=== PATIENT | male | born 1955 | race Two or more races ===

== ENCOUNTER → 2024-11-19 | Outpatient (CLI) | payer MEDICARE, MEDICAID, SELFPAY ==
--- NOTE | 2024-11-19 09:00 | XR_ITS ---
Examination: Bone densitometry Date and time of exam:November 19, 2024 0949 hours INDICATIONS: 69-year-old male with diagnosis age related osteoporosis Technique: Lumbar spine and hip total bone mineralization values of an calculated. Peak reference and age match control results have been displayed. Findings: Lumbar spine total bone mineralization is1.571 gm/cm2. This is 4.4 standard deviations above peak reference. This is 5.3 standard deviations above age-matched controls. Hip total bone mineralization is 1.198 gm/cm2 This is 1.1 standard deviations above peak reference. This is 1.7 standard deviations above age-matched controls Impression: There is normal mineralization based on lumbar spine measurements. There is normal mineralization based on hip measurements
[2024-11-19 10:01] LABS: Collection Type, Urine Clean Catch
[2024-11-19 10:22] LABS: Basophils % (Auto) 1 % (0-2.5); Eosinophils # (Auto) 0.2 Thou/mm3 (0.0-0.5); Eosinophils % (Auto) 4 % (0-10); Hematocrit 45.4 % (41.0-53.0); Hemoglobin 15.5 g/dL (13.5-16.0); Immature Granulocytes % (Auto) 0 % (0-0); Immature Granulocytes Auto 0.01 Thou/mm3 (0.00-0.00); Lymphocytes # (Auto) 2.1 Thou/mm3 (1.0-4.8); Lymphocytes % (Auto) 37 % (10-50); Mean Corpuscular HGB Conc 34.1 g/dl (31.0-37.0); Mean Corpuscular Hemoglobin 32.9 pg (25.0-35.0); Mean Corpuscular Volume 96 fL (80-100); Monocytes # (Auto) 0.6 Thou/mm3 (0.0-0.8); Monocytes % (Auto) 11 % (0-12); Neutrophils # (Auto) 2.7 Thou/mm3 (1.8-7.7); Neutrophils % (Auto) 48 % (37-80); Nucleated Red Blood Cell % 0 /100 WBC (0); Platelet Count 216 Thou/mm3 (140-440); RDW Standard Deviation 46.4 fL (35.1-43.9); Red Blood Count 4.71 Miln/mm3 (4.50-5.90); White Blood Count 5.7 Thou/mm3 (3.8-10.6)
[2024-11-19 10:29] LABS: Bilirubin,Urine Negative (Negative); Blood,Urine 1+ (Negative); Clarity,Urine Clear (Clear/Hazy); Color,Urine Lt-Yellow (Lt Yel-Yel); Glucose, Urine 3+ (Negative); Ketones,Urine Negative (Negative); Leukocyte Esterase,Urine Negative (Negative); Nitrite,Urine Negative (Negative); PH,Urine 6.5 (5.0-7.0); Protein,Urine 3+ (Neg - Trace); RBC,Urine 6 /hpf (0-3); Specific Gravity,Urine 1.018 (1.001-1.035); Squamous Epithelial Cell,Urine < 1 /hpf (0-5); Urobilinogen,Urine Negative mg/dL (0.0-1.0); WBC,Urine 5 /hpf (0-5)
[2024-11-19 10:54] LABS: Alanine Aminotransferase 25 U/L (10-49); Albumin, Serum 4.2 gm/dL (3.4-4.8); Albumin/Globulin Ratio 1.5 (1.2-2.2); Alkaline Phosphatase 112 U/L (46-116); Anion Gap 9 (7-16); Aspartate Amino Transferase 26 U/L (0-34); BUN/Creatinine Ratio 15 Ratio (12-20); Bilirubin,Total 1.7 mg/dL (0.3-1.2); Blood Urea Nitrogen 12 mg/dL (9-23); Calcium 9.6 mg/dL (8.3-10.6); Calcium (Corrected) 9.6 mg/dL (8.5-10.1); Carbon Dioxide 30.4 mMol/L (20.0-31.0); Cardiac Risk Estimate 3.9 RATIO (4.0-6.7); Chloride 101 mMol/L (98-107); Cholesterol 149 mg/dL (132-200); Creatinine (Component) 0.8 mg/dL (0.6-1.3); Globulin 2.8 gm/dL (2.3-3.5); Glucose 116 mg/dL (74-106); HDL Cholesterol 38 mg/dL (40-60); LDL Cholesterol,Calculated 62 mg/dL (0-130); Osmolality,Calculated 280 (275-295); Potassium 3.9 mMol/L (3.4-5.1); Sodium 140 mMol/L (136-145); Thyroid Stimulating Hormone 1.37 uIU/mL (0.55-4.78); Triglycerides 247 mg/dL (30-150); Uric Acid 4.8 mg/dL (3.7-9.2); eGFR > 60 See Note
== END | disposition home or self-care (01) ==
LOC: CDIM 09:30
PROVIDERS: PCP Family Medicine; Referring Provider Family Medicine; Visit Provider Family Medicine
DX: M81.0 Age-related osteoporosis without current pathological fracture (principal); I10 Essential (primary) hypertension; E78.2 Mixed hyperlipidemia; E79.0 Hyperuricemia without signs of inflammatory arthritis and tophaceous disease
CPT/HCPCS: 36415; 77080; 80053; 80061; 81001; 84443; 84550; 85025

== ENCOUNTER 2024-12-01 17:30 | Emergency (ER) | payer MEDICAID, SELFPAY ==
[2024-12-01 17:30] VITALS: BMI 33.9
[2024-12-01 18:47] VITALS: BP 134/75; PULSE 68; RESP 20; TEMP 36.8; O2SAT 93
[2024-12-01 20:36] LABS: Strep A Rapid Negative (Negative)
--- NOTE | 2024-12-01 21:25 | PD.EDDENTL ---
ED Dental RME/HPI General Chief complaint: Dental/Oral/Throat Stated complaint: SORE THROAT/BROKE TOOTH X 1 DAY Time Seen by Provider: 12/01/24 18:23 Arrival date/time: 12/01/24 17:30 This is a case of 69-year-old male who came into the emergency room due to dental pain and sore throat and mouth pain history of present illness started 1 day prior to arrival in the emergency room when the patient was broken and started to have pain and swelling on the right lower dental patient also have a cold sore on the right side of the tongue and sore throat no drooling of saliva patient can speak speak full sentences no hoarseness of voice Limitations: no limitations Related Data Previous Rx's ?Medication ?Instructions ?Recorded ibuprofen 800 mg tablet 800 mg PO TID PRN pain #30 tabs 08/23/21 clindamycin HCl 300 mg capsule 300 mg PO Q8H 10 days #30 caps 12/01/24 (Cleocin HCl) lidocaine HCl 2 % mucosal solution 10 ml PO Q4HR PRN mouth pain #100 12/01/24 (Lidocaine Viscous) mL Allergies Allergy/AdvReac Type Severity Reaction Status Date / Time No Known Allergies Allergy Verified 12/01/24 17:32 Review of Systems Review of Systems Systems Reviewed: All systems reviewed, normal except as documented Constitutional Constitutional: Reports system reviewed and no additional complaints, except as documented, Reports as per HPI and Denies headache(s) ENT Ears, Nose, Mouth, and Throat: Reports system reviewed and no additional complaints, except as documented, Reports as per HPI, Denies abnormal hearing, Denies bleeding gums, Denies change in voice, Reports dental pain, Denies disequilibrium, Denies dizziness, Denies dry mouth, Denies dysphagia, Denies ear discharge, Denies otalgia, Denies epistaxis, Denies facial pain, Denies halitosis, Denies headache(s), Denies hearing loss, Denies hoarseness, Denies lip swelling, Reports mouth lesions, Reports mouth pain, Denies nasal congestion, Denies nasal discharge, Denies nasal obstruction, Denies nasal trauma, Denies neck mass, Denies neck pain, Denies nose pain, Denies odynophagia, Denies post nasal drip, Denies sinus pain, Denies sinus pressure, Denies sore throat, Denies throat swelling, Denies tinnitus, Denies tongue swelling and Denies vertigo Cardiovascular Cardiovascular: Reports system reviewed and no additional complaints, except as documented Respiratory Respiratory: Reports system reviewed and no additional complaints, except as documented and Reports as per HPI Gastrointestinal Gastrointestinal: Reports system reviewed and no additional complaints, except as documented, Reports as per HPI, Denies dysphagia and Denies odynophagia Musculoskeletal Musculoskeletal: Reports system reviewed and no additional complaints, except as documented, Reports as per HPI and Denies neck pain Integumentary/Breasts Skin/Breast: Reports system reviewed and no additional complaints, except as documented and Reports as per HPI Neurologic Neurologic: Reports system reviewed and no additional complaints, except as documented, Reports as per HPI, Denies abnormal hearing, Denies disequilibrium, Denies dizziness, Denies headache(s) and Denies vertigo Allergic/Immunologic Allergic/Immunologic: Denies lip swelling, Denies throat swelling and Denies tongue swelling Past Medical History Social History SMOKING STATUS: Never smoker ED Exam General Limitations: Present no limitations General appearance: Present alert and in no apparent distress Head Head exam: Present atraumatic and normocephalic Eye Eye exam: Present normal appearance, PERRL and EOMI ENT ENT exam: Present normal exam, normal oropharynx and mucous membranes moist Expanded ENT Exam Mouth exam: Present other (Cold sore on the right side of the tongue no swelling no ulcer no other lesion noted); Absent drooling, trismus, lip swelling, tongue elevation or tongue swelling Teeth numbered:  1. Fractured, Dental Tenderness and Other (Noted mild to moderate tenderness went up on the tooth #32 with missing teeth 3132 with gum swelling with some redness mild abscess no cellulitis) Throat exam: Present tonsillar erythema, tonsillomegaly and other (No peritonsillar abscess no drooling of saliva patient can speak full sentences no hoarseness of voice no muffled voice no hot potato voice); Absent tonsillar exudate, R peritonsillar mass or L peritonsillar mass Neck Neck exam: Present normal inspection, full ROM, trachea midline and other (No neck mass); Absent tenderness, meningismus, lymphadenopathy or thyromegaly Chest Chest inspection: Present normal inspection and symmetric chest wall rise Respiratory Respiratory exam: Present normal lung sounds bilaterally; Absent respiratory distress, wheezes, stridor, accessory muscle use or prolonged expiratory phase Cardiovascular Cardiovascular exam: Present regular rate, normal rhythm and normal heart sounds Abdominal Exam Abdominal exam: Present soft and normal bowel sounds Extremities Exam Extremities exam: Present normal inspection and full ROM Back Exam Back exam: Present normal inspection and full ROM Neurological Exam Neurological exam: Present alert, oriented X3, CN II-XII intact, normal gait and reflexes normal; Absent motor sensory deficit Psychiatric Psychiatric exam: Present normal affect and normal mood Skin Skin exam: Present warm, dry, intact and normal color Course Quality Measures none Orders Category Date Time Status Strep A Rapid Stat Lab 12/01/24 19:40 Completed Clindamycin Vial [Cleocin vial] Med 12/01/24 21:21 Discontinued 600 mg IM X1 ONE cefTRIAXone [Rocephin] 1,000 mg Med 12/01/24 21:17 Discontinued Lidocaine 1% 20 ml [Xylocaine 1% 20 ML] 2.1 ml IM X1 Vital Signs Vital signs: Vital Signs Temperature 98.3 F 12/01/24 18:47 Pulse Rate 68 12/01/24 18:47 Respiratory Rate 20 12/01/24 18:47 Blood Pressure 134/75 H 12/01/24 18:47 Pulse Oximetry (%) 93 L 12/01/24 18:47 Oxygen Delivery Method Room Air 12/01/24 18:47 Oxygen saturation 93% on room air normal Dental / Oral MDM Narrative MDM Narrative:: This is a case of 69-year-old male who came into the emergency room due to dental pain and sore throat and mouth pain history of present illness started 1 day prior to arrival in the emergency room when the patient was broken and started to have pain and swelling on the right lower dental patient also have a cold sore on the right side of the tongue and sore throat no drooling of saliva patient can speak speak full sentences no hoarseness of voice physical examination patient is awake alert oriented not in distress nontoxic looking no neck mass excellent skin turgor noted a moderate tenderness on tooth #32 with missing teeth 3130 with gum swelling redness mild abscess no cellulitis patient also have mild to moderate swelling on the tonsils with redness but no exudate no peritonsillar abscess no drooling of saliva patient can speak full sentences no hoarseness of voice no muffled voice patient also have cold sore on the right side of the tongue the rest of the physical examination are normal no indication to perform incision and drainage patient rapid strep is negative patient was given clindamycin for tooth abscess patient was advised to follow-up with the dentist for reevaluation and possible dental procedure for any worsening symptoms he will return in the emergency room immediately or call 911 he was prescribed clindamycin for pharyngitis and for tooth abscesses and lidocaine viscous as needed for pain patient worsening symptoms or any emergent concern he was informed to return in the emergency room immediately or call [phone] Patient data External records reviewed:: [facility] previous records Clinical information provided by:: patient Social determinants that could affect healthcare access:: none Patient has the following chronic illnesses:: None How is presenting disease/condition affected by chronic disease/condition?: no chronic disease Evaluation data The following diagnostics were reviewed and interpreted by me:: lab results Lab and/or radiology exams considered but not ordered:: Reviewed Interpretation Summary: Reviewed Medications / Prescriptions Medications or Prescriptions considered but not ordered:: Given Medication administrations:: Medication Administration History Discontinued Medications Clindamycin Phosphate (Clindamycin Phos Inj 150 Mg/Ml Vial 6 Ml) 600 mg IM X1 ONE Stop: 12/01/24 21:22 Ceftriaxone Sodium 1,000 mg/ (Lidocaine HCl 2.1 ml) 0 mg IM X1 ONE Stop: 12/01/24 21:18 Given Consultations Consultation(s) initiated? (list below): No Diagnosis Dental Differential Diagnosis: dental caries, toothache and dental abscess Most likely diagnosis given after review of the tests above:: Tooth abscess Admission Indicated Admission indicated?: not indicated Explain why admission is indicated or not indicated:: Not indicated Admission Request Was there a request for admission?: No Admission Attestation Admission request attestation: Not indicated Disposition Plan Disposition Plan: Discharge Discharge Attestation Discharge Attestation: The patient and all family members were given an opportunity to ask questions and understood the discharge instructions. Discharge instructions specifically effects, indications for sooner follow up or return to the emergency department, and the expected course of current diagnosis. Patient condition: Stable Discharge Plan Plan Patient Disposition: HOME (Self Care) Patient condition on transfer: Stable Prescriptions/Referrals Prescriptions/Med Rec: New clindamycin HCl [Cleocin HCl] 300 mg capsule 300 mg PO Q8H 10 Days Qty: 30 0RF lidocaine HCl [Lidocaine Viscous] 2 % solution 10 ml PO Q4HR PRN (Reason: mouth pain) Qty: 100 0RF No Action ibuprofen 800 mg tablet 800 mg PO TID PRN (Reason: pain) Qty: 30 0RF Referrals: Ben Hobson MD [Primary Care Provider] - In 1 week Problem List Clinical Impression: Tooth abscess, Acute pharyngitis, Mouth sore Patient/Caregiver Discharge Instructions Education Materials: When You Have a Sore Throat, What Are Oral Lesions ..., ED Tooth Abscess Additional Instructions: Follow-up with your primary care physician in 2 days for reevaluation it is important to see your dentist in 2 days for reevaluation and possible dental procedure worsening symptoms or any emergent concern take your medication as directed you can take Tylenol Motrin as needed for pain warm saline gargle is advised take lidocaine viscous as needed for mouth pain Print Language: Upper Sorbian Stand Alone Forms: Mckenzie Award Info., Patient Portal Info Letter PA/[employer] Supervising Physician PA/VERONICA Supervising Physician: dr miller
[2024-12-01] MEDS: CLINDAMYCIN PHOS INJ 150 MG/ML VIAL 6 ML 600 MG IM (21:42)
== END 2024-12-01 21:56 | disposition home or self-care (01) ==
PROVIDERS: Nurse Practitioner Family; Emergency Provider Emergency Medicine; PCP Family Medicine
DX: K04.7 Periapical abscess without sinus (principal); J02.9 Acute pharyngitis, unspecified
CPT/HCPCS: 87651; 96372; 99283; J0736

== ENCOUNTER → 2025-03-27 | Outpatient (CLI) | payer MEDICARE, MEDICAID, SELFPAY ==
[2025-03-27 11:27] LABS: Alanine Aminotransferase 23 U/L (10-49); Albumin, Serum 4.5 gm/dL (3.4-4.8); Albumin/Globulin Ratio 1.7 (1.2-2.2); Alkaline Phosphatase 99 U/L (46-116); Anion Gap 9 (7-16); Aspartate Amino Transferase 24 U/L (0-34); BUN/Creatinine Ratio 12 Ratio (12-20); Bilirubin,Total 1.7 mg/dL (0.3-1.2); Blood Urea Nitrogen 11 mg/dL (9-23); Calcium 9.7 mg/dL (8.3-10.6); Calcium (Corrected) 9.7 mg/dL (8.5-10.1); Carbon Dioxide 28.7 mMol/L (20.0-31.0); Cardiac Risk Estimate 3.8 RATIO (4.0-6.7); Chloride 102 mMol/L (98-107); Cholesterol 129 mg/dL (132-200); Creatinine (Component) 0.9 mg/dL (0.6-1.3); Globulin 2.6 gm/dL (2.3-3.5); Glucose 119 mg/dL (74-106); HDL Cholesterol 34 mg/dL (40-60); LDL Cholesterol,Calculated 54 mg/dL (0-130); Osmolality,Calculated 279 (275-295); Potassium 3.9 mMol/L (3.4-5.1); Sodium 140 mMol/L (136-145); Total Protein 7.1 gm/dL (5.7-8.2); Triglycerides 203 mg/dL (30-150); Uric Acid 3.9 mg/dL (3.7-9.2); eGFR > 60 See Note
== END | disposition home or self-care (01) ==
LOC: COPL 09:17
PROVIDERS: PCP Family Medicine; Referring Provider Family Medicine; Visit Provider Family Medicine
DX: E78.2 Mixed hyperlipidemia (principal); I10 Essential (primary) hypertension; E79.0 Hyperuricemia without signs of inflammatory arthritis and tophaceous disease
CPT/HCPCS: 36415; 80053; 80061; 84550